=== PATIENT | female | born 1970 | race Two or more races ===

== ENCOUNTER 2025-06-04 00:15 | Emergency (ER) | payer MEDICAID, SELFPAY ==
[2025-06-04 00:26] VITALS: BP 168/101; PULSE 72; RESP 20; TEMP 36.9; O2SAT 96; BMI 36.5
--- NOTE | 2025-06-04 00:30 | XR_ITS ---
Examination: CT abdomen and pelvis without contrast. Coronal 3-D reconstructions. Sagittal 2-D reconstructions. Date and time of exam: June 04, 2025, 0158 hours INDICATIONS: Abdominal pain right lower abdominal pain beginning 4 days ago CTDI: vol (mGy): 12.8 DLP: (mGycm): 670 Technique: Axial images of the abdomen have been obtained, 3 mm slice thickness Intravenous contrast material has not been administered. Low dose protocols were performed. One or more of the following dose reduction techniques were used; automated exposure control, adjustment of the mA and/or KV according to patient size, use of iterative reconstruction technique. Findings: Diffuse fatty infiltration throughout the liver no focal liver or splenic lesions No gallstones No pancreatic or adrenal mass. Mild right hydronephrosis, 2 mm distal right ureteral vesicle junction calculus Aorta normal size No bowel obstruction Normal appendix No pelvic mass Osseous structures intact L5-S1 3 mm central lumbar disc bulge, L4-L5 moderate overall spinal stenosis, axial image 130 IMPRESSION: Mild right hydronephrosis secondary to 2 mm distal right ureterovesical junction calculus
--- NOTE | 2025-06-04 00:31 | PD.EDRME ---
Rapid Medical Screening Exam RME Arrival date/time: 06/04/25 00:15 54F with no significant PMH presents to ED with several days of intermittent but worsening R flank pain that goes toward groin, as well as some N/V. Patient denies dysuria. Chief Complaint: Abdominal Pain Vital signs: Vital Signs Temperature 98.5 F 06/04/25 00:26 Pulse Rate 72 06/04/25 00:26 Respiratory Rate 20 06/04/25 00:26 Blood Pressure 168/101 H 06/04/25 00:26 Pulse Oximetry (%) 96 06/04/25 00:26 Oxygen Delivery Method Room Air 06/04/25 00:26 Exam: No ab tenderess Clinical Impression: UTI/pyelo vs kidney stone vs appy vs ab pain vs torsion
[2025-06-04 00:54] LABS: Basophils # (Auto) 0.0 Thou/mm3 (0.0-0.2); Basophils % (Auto) 0 % (0-2.5); Eosinophils # (Auto) 0.0 Thou/mm3 (0.0-0.5); Eosinophils % (Auto) 0 % (0-10); Hematocrit 39.3 % (36.0-46.0); Hemoglobin 13.0 g/dL (12.0-16.0); Immature Granulocytes Auto 0.08 Thou/mm3 (0.00-0.00); Lymphocytes # (Auto) 4.4 Thou/mm3 (1.0-4.8); Lymphocytes % (Auto) 37 % (10-50); Mean Corpuscular HGB Conc 33.1 g/dl (31.0-37.0); Mean Corpuscular Hemoglobin 28.6 pg (25.0-35.0); Mean Corpuscular Volume 87 fL (80-100); Monocytes # (Auto) 0.8 Thou/mm3 (0.0-0.8); Monocytes % (Auto) 7 % (0-12); Neutrophils # (Auto) 6.4 Thou/mm3 (1.8-7.7); Neutrophils % (Auto) 55 % (37-80); Nucleated Red Blood Cell # 0.00 Thou/mm3 (0.00-0.00); Nucleated Red Blood Cell % 0 /100 WBC (0); Platelet Count 267 Thou/mm3 (140-440); RDW Standard Deviation 46.5 fL (36.4-46.3); Red Blood Count 4.54 Miln/mm3 (4.00-5.20); White Blood Count 11.8 Thou/mm3 (3.6-11.0)
[2025-06-04 01:07] LABS: Alanine Aminotransferase 45 U/L (10-49); Albumin, Serum 4.8 gm/dL (3.5-5.0); Albumin/Globulin Ratio 2.0 (1.2-2.2); Alkaline Phosphatase 142 U/L (46-116); Anion Gap 7 (7-16); Aspartate Amino Transferase 32 U/L (0-34); BUN/Creatinine Ratio 21 Ratio (12-20); Bilirubin,Total 0.4 mg/dL (0.3-1.2); Blood Urea Nitrogen 17 mg/dL (9-23); Calcium 9.2 mg/dL (8.3-10.6); Calcium (Corrected) 9.2 mg/dL (8.5-10.1); Carbon Dioxide 27.5 mMol/L (20.0-31.0); Chloride 107 mMol/L (98-107); Creatinine (Component) 0.8 mg/dL (0.6-1.3); Estimated Creatinine Clearance 78.6 mL/min (>60); Globulin 2.4 gm/dL (2.3-3.5); Glucose 146 mg/dL (74-106); Lipase 41 U/L (12-53); Osmolality,Calculated 285 (275-295); Potassium 4.8 mMol/L (3.4-5.1); Sodium 141 mMol/L (136-145); Total Protein 7.2 gm/dL (5.7-8.2); eGFR > 60 See Note
[2025-06-04 01:16] LABS: Collection Type, Urine Clean Catch
[2025-06-04 01:22] LABS: HCG Qualitative,Urine Negative
[2025-06-04 01:26] LABS: Bacteria,Urine Rare; Bilirubin,Urine Negative (Negative); Blood,Urine Negative (Negative); Clarity,Urine Clear (Clear/Hazy); Color,Urine Lt-Yellow (Lt Yel-Yel); Culture Indicated,Urine Not Indicated; Glucose, Urine Negative (Negative); Ketones,Urine Negative (Negative); Leukocyte Esterase,Urine Negative (Negative); Nitrite,Urine Negative (Negative); PH,Urine 6.5 (5.0-7.0); Protein,Urine Trace (Neg - Trace); RBC,Urine 3 /hpf (0-3); Specific Gravity,Urine 1.023 (1.001-1.035); Squamous Epithelial Cell,Urine 6 /hpf (0-5); Urobilinogen,Urine Negative mg/dL (0.0-1.0); WBC,Urine 2 /hpf (0-5)
[2025-06-04 01:30] LABS: Amphetamine/Methamp Scrn,U Negative (Negative); Barbiturate Screen,Urine Negative (Negative); Benzodiazepines Screen,Urine Negative (Negative); Benzoylecgonine Screen, Ur Negative (Negative); Fentanyl Screen,Urine Negative (Negative); Opiate Screen,Urine Negative (Negative); THC Screen,Urine Negative (Negative)
[2025-06-04 01:39] VITALS: BP 148/97; PULSE 69; RESP 16; TEMP 37; O2SAT 98
--- NOTE | 2025-06-04 01:41 | EDNOTE_ITS ---
ED Abdominal Pain RME/HPI General Chief Complaint: Abdominal Pain Stated complaint: Abdominal pain RLQ for 4day Arrival date/time: 06/04/25 00:15 RME / HPI RME / HPI narrative: 06/04/25 00:15 CC: Abdomen pain Patient is a 54-year-old female who denied a past medical history who presented to the emergency room via private vehicle with a chief complaint of left lower abdominal pain. Patient stated pain is located at the left lower quadrant that started on Monday. Patient stated pain comes and goes and is sharp. Patient stated pain was 10 out of 10 at approximately 11 PM on 06/03/2025 which prompted patient to come into the emergency room. Patient denied any hematuria. Denies dysuria. Has increased frequency urination. Denied diarrhea or constipation. Denied past surgical history. Patient still has appendix and gallbladder. Denied recent sick contacts. Positive for nausea. CBC CMP UA CT Abdomen/Pelvis Exam: No ab tenderess Impression: UTI/pyelo vs kidney stone vs appy vs ab pain vs torsion Related Data Previous Rx's ?Medication ?Instructions ?Recorded hydrocodone 5 mg-acetaminophen 300 1 tab PO BID PRN pa in 7 days #14 06/04/25 mg tablet tabs promethazine 12.5 mg tablet 12.5 mg PO TID PRN nausea and 06/04/25 vomiting 7 days #20 tabs tamsulosin 0.4 mg capsule (Flomax) 0.4 mg PO QDAY Kidn ey Stone 7 06/04/25 days #7 caps Allergies Allergy/AdvReac Type Severity Reaction Status Date / Time No Known Allergies Allergy Verified 06/04/25 00:18 Review of Systems Review of Systems Narrative Review of Systems: General appearance: NO weight change, NO fatigue, NO weakness, NO fever, NO chills, NO night sweats, No cough Skin: NO rash, NO itching, NO sores, NO moles HEENT: NO Trauma, NO nausea, NO vomiting, NO visual changes, NO blurry vision, NO double vision, NO tinnitus, NO vertigo, NO ear discharge, NO rhinorrhea, NO stuffiness, NO sneezing, NO allergy, NO epistaxis. NO Hoarseness, NO sore throat, NO swollen neck. Cardiac: NO Palpitations, NO dyspnea on exertion, NO orthopnea, NO paroxysmal nocturnal dyspnea, NO edema Respiratory: NO Shortness of Breath, NO Wheezing, NO Cough, NO Sputum, NO hemoptysis GI:NO appetite, NO nausea, NO vomiting, NO dysphagia, NO changes in bowel frequency, NO stool color, NO diarrhea, NO constipation, NO hemetemesis, NO hemorrhoids, NO melena, NO hematechezia, left lower quadrant abdominal pain, NO jaundice Renal: No frequency, NO hesitancy, NO urgency, NO hematuria, NO nocturia, NO incontinence MSK: NO muscle weakness, NO gout, NO arthritis, NO muscle stiffness Neuro: NO headaches, NO tremors, NO weakness, NO paralysis, NO seizures, NO loss of consciousness, NO numbness. Hem: NO anemia, NO easy bruising/bleeding, NO petechiae, NO purpura Endo: NO heat/cold intolerance, NO excessive sweating, NO polyuria, NO polydipsia, NO polyphagia, NO thyroid problems, NO diabetes Pysch: NO mood, NO anxiety, NO depression ED Exam Narrative Physical exam: General Appearance: Alert & Oriented X3, well-nourished female who is lying in bed in mild stress, HEENT: Skull symmetrical and atraumatic. Conjunctivae pink and moist. Pupils equal, round, reactive to light and accommodation (PERRL). External ear without lesion or discharge. Straight, nares patient, mucosa pink, no discharge. Cardio: Normal Rate and Rhythm with S1 and S2 heart sounds. No murmurs or extra heart sounds auscultated. No bruits on carotid auscultation. No peripheral edema or cyanosis. Lungs: Symmetric with good expansion. Chest and back non-tender. Breath sounds vesicular without crackles, wheezing or rhonchi Abdomen: Left lower quadrant to deep palpation, negative Flank, Non-distended, Normal Reactive Bowel Sounds, Negative Br[place]ila sign Neuro: Alert, cooperative, oriented to person, place, and time. Speech clear. CN grossly intact. Upper motor strength 5/5 and Lower motor strength 5/5. Sensation intact. Course Quality Measures none Orders Category Date Time Status CT abdomen pelvis wo con Stat Exams 06/04/25 00:30 Taken CBC Stat Lab 06/04/25 00:43 Completed CMP [Comprehensive Metabolic Panel] Stat Lab 06/04/25 00:43 Completed Drug Screen,Urine Stat Lab 06/04/25 01:05 Completed HCG Qualitative,Urine Stat Lab 06/04/25 01:05 Completed Lipase Stat Lab 06/04/25 00:43 Completed Urinalysis, C/S if Indicated Stat Lab 06/04/25 01:05 Completed Ketorolac Inj [Toradol Inj] Med 06/04/25 01:39 Discontinued 30 mg IVP X1 ONE Ketorolac Inj [Toradol Inj] Med 06/04/25 00:30 Discontinued 60 mg IM X1 ONE Ondansetron Odt [Zofran Odt] Med 06/04/25 00:30 Discontinued 4 mg PO X1 ONE Tamsulosin HCl [Flomax] Med 06/04/25 03:07 Discontinued 0.4 mg PO X1 ONE cefTRIAXone [Rocephin] 1,000 mg Med 06/04/25 03:08 Discontinued SODIUM CHLORIDE 0.9% (Popper) [Ns 0.9% (P)] 50 ml IV X1 Vital Signs Vital signs: Vital Signs Temperature 98.5 F 06/04/25 00:26 Pulse Rate 72 06/04/25 00:26 Respiratory Rate 20 06/04/25 00:26 Blood Pressure 168/101 H 06/04/25 00:26 Pulse Oximetry (%) 96 06/04/25 00:26 Oxygen Delivery Method Room Air 06/04/25 00:26 Abdominal Pain MDM Patient data External records reviewed:: [facility] previous records Clinical information provided by:: patient and family Social determinants that could affect healthcare access:: none Patient has the following chronic illnesses:: None How is presenting disease/condition affected by chronic disease/condition?: uneffected by Evaluation data The following diagnostics were reviewed and interpreted by me:: lab results and radiology exam(s) Lab and/or radiology exams considered but not ordered:: none Interpretation Summary: CT scan of the abdomen and pelvis without intravenous contrast (axial sections with sagittal and coronal reformats) June 04, 2025 01:58 hours ? Clinical History:?Right flank pain Comparison:?No prior study available for comparison at the time of interpretation. ? Findings: Fatty infiltration of the liver is noted. The gallbladder, spleen, adrenals, left kidney and pancreas are unremarkable on this non-contrast study. There is a 2 mm obstructing calculus at the right ureterovesical junction (axial image 194/245) with mild right hydroureteronephrosis. ? There is no bowel obstruction. The appendix is within normal limits (axial image 146/245). ? There is suggestion of pelvic floor laxity with possible rectocele. The urinary bladder is incompletely distended at the time of the examination. There is no free fluid or free air. The aorta is unremarkable on this non-contrast study. ? Degenerative changes are seen in the spine. ? There is dependent atelectasis in the lungs. There is no pleural effusion. ? Please note that evaluation of soft tissue/vascular structures and bowel loops is limited due to absence of IV and oral contrast. ? Impression: A 2 mm obstructing calculus at the right ureterovesical junction with mild right hydroureteronephrosis. Other findings are as described above. ? Suggest clinical correlation and follow up accordingly. This report has been electronically signed by: Jonathan Coello MD. Medications / Prescriptions Medications or Prescriptions considered but not ordered:: none Medication administrations:: Medication Administration History Discontinued Medications Ceftriaxone Sodium 1,000 mg/ (Sodium Chloride) 50 mls @ 100 mls/hr IV X1 ONE Stop: 06/04/25 03:37 Last Admin: 06/04/25 03:14 Dose: Not Given Documented By: DT Non-Admin Reason: Cancelled by Provider Ketorolac Tromethamine (Ketorolac Inj 60 Mg/2 Ml Vial) 60 mg IM X1 ONE Stop: 06/04/25 00:31 Last Admin: 06/04/25 01:40 Dose: Not Given Documented By: TIFFANY Non-Admin Reason: Cancelled by Provider Ketorolac Tromethamine (Ketorolac Inj 30 Mg/Ml Vial) 30 mg IVP X1 ONE Stop: 06/04/25 01:40 Last Admin: 06/04/25 01:49 Dose: 30 mg Documented By: TIFFANY Ondansetron HCl (Ondansetron Odt 4 Mg Tabrap) 4 mg PO X1 ONE; Protocol Stop: 06/04/25 00:31 Last Admin: 06/04/25 01:50 Dose: 4 mg Documented By: CB Tamsulosin HCl (Tamsulosin Hcl 0.4 Mg Capsule) 0.4 mg PO X1 ONE Stop: 06/04/25 03:08 Last Admin: 06/04/25 03:18 Dose: 0.4 mg Documented By: DAVID same as above Consultations Consultation(s) initiated? (list below): No Diagnosis Differential diagnosis abdominal pain: acute appendicitis, calculus of kidney, constipation and diverticulitis Most likely diagnosis given after review of the tests above:: Patient is a 54 year old female with a limited past medical history who presented with L. lower quadrant pain with mild Leukocytosis, UA was negative, and CT abdomen noted positive for 2 mm obstructing at right kidney with mild hydronephrosis. No pyrexia noted on vitals. Paiten will be discharged on flomax for the next 7 days scheduled and promethazine and norco as needed. Please follow up with your primary care #Nephrolothiasis #Mild hydronephrosis #2mm stone - The patient's plan was discussed with attending Dr. Osei Velásquez MD PGY2 Internal Medicine Admission Indicated Admission indicated?: not indicated Explain why admission is indicated or not indicated:: No admission indicated as patient has UTI and stone is only 2 mm in diameter. Admission Request Was there a request for admission?: No Disposition Plan Disposition Plan: Discharge Discharge Attestation Discharge Attestation: The patient and all family members were given an opportunity to ask questions and understood the discharge instructions. Discharge instructions specifically effects, indications for sooner follow up or return to the emergency department, and the expected course of current diagnosis. Patient condition: Stable Discharge Plan Plan Patient Disposition: HOME (Self Care) Patient condition on transfer: Stable Health Concerns: Instructions: -Take Flomax 0.4 mg once daily for the next 7 days to help pass kideny stone. -Promethazine 12.5 mg up to three times a day as needed for nausea and vomiting -[place] 5 tablets twice a day as needed for pain -Please follow up with a primary care provider to make sure kidney stone has passed. If needed make a referral to urology by your primary care provider. --Please follow up with your primary care provider within one week of discharge -If your symptoms worsen,please seek immediate medical attention and return to your nearest emergency room -If you do not have a primary care provider, you may follow up at the [facility] at [address], [place] [address], Prescriptions/Referrals Prescriptions/Med Rec: New tamsulosin [Flomax] 0.4 mg capsule 0.4 mg PO QDAY 7 Days Qty: 7 0RF hydrocodone-acetaminophen 5-300 mg tablet 1 tab PO BID MDD 2 tablets per day as needed PRN (Reason: pain) 7 Days Qty: 14 0RF promethazine 12.5 mg tablet 12.5 mg PO TID PRN (Reason: nausea and vomiting) 7 Days Qty: 20 0RF Referrals: Matt Salcedo MD [Primary Care Provider, Family Practice] - In 1 week Problem List Clinical Impression: Calcium nephrolithiasis Patient/Caregiver Discharge Instructions Education Materials: ED Kidney Stone w/ Colic Print Language: Lithuanian Stand Alone Forms: Michela Award Info., Patient Portal Info Letter MD Attestation Attestation I, Dr. Franz, have reviewed the history, exam, and assessment of the patient. I have evaluated the patient independently and agree with the plan of care documented by the resident Dr. Velásquez. All diagnostic studies were reviewed and discussed. I confirm the diagnosis as documented by the resident. I was present during the Medical Decision Making for this patient. The patient?s plan of care was created between myself and the resident and consistent with our discussion of the patient?s case.
[2025-06-04] MEDS: KETOROLAC INJ 30 MG/ML VIAL IVP (01:49)
[2025-06-04] MEDS: ONDANSETRON ODT 4 MG TABRAP PO (01:50)
[2025-06-04 02:14] VITALS: BP 121/75; PULSE 67; RESP 17; TEMP 37.1; O2SAT 98
--- NOTE | 2025-06-04 02:45 | PRELIM_ITS ---
CT scan of the abdomen and pelvis without intravenous contrast (axial sections with sagittal and coronal reformats) June 04, 2025 01:58 hours Clinical History: Right flank pain Comparison: No prior study available for comparison at the time of interpretation. Findings: Fatty infiltration of the liver is noted. The gallbladder, spleen, adrenals, left kidney and pancreas are unremarkable on this non-contrast study. There is a 2 mm obstructing calculus at the right ureterovesical junction (axial image 194/245) with mild right hydroureteronephrosis. There is no bowel obstruction. The appendix is within normal limits (axial image 146/245). There is suggestion of pelvic floor laxity with possible rectocele. The urinary bladder is incompletely distended at the time of the examination. There is no free fluid or free air. The aorta is unremarkable on this non-contrast study. Degenerative changes are seen in the spine. There is dependent atelectasis in the lungs. There is no pleural effusion. Please note that evaluation of soft tissue/vascular structures and bowel loops is limited due to absence of IV and oral contrast. Impression: A 2 mm obstructing calculus at the right ureterovesical junction with mild right hydroureteronephrosis. Other findings are as described above. Suggest clinical correlation and follow up accordingly. Report Electronically Signed By: Jonathan Lamb 06/04/2025 2:44:48 AM [EST]
[2025-06-04] MEDS: TAMSULOSIN HCL 0.4 MG CAPSULE PO (03:18)
[2025-06-04 03:33] VITALS: BP 132/79; PULSE 63; RESP 16; TEMP 36.7; O2SAT 96
== END 2025-06-04 03:34 | disposition home or self-care (01) ==
PROVIDERS: Physician Assistant; Emergency Provider Emergency Medicine; PCP Family Medicine
DX: N13.2 Hydronephrosis with renal and ureteral calculous obstruction (principal)
CPT/HCPCS: 36415; 74176; 80053; 80307; 81001; 81025; 83690; 85025; 96374; 99283; J1885; Q0162; A9270